=== PATIENT | male | born 1985 | race Caucasian/White ===

== ENCOUNTER 2016-12-05 20:18 | Emergency (ER) | payer SELFPAY ==
[2016-12-05] VITALS (7 sets, daily range): BP systolic 149–198; BP diastolic 107–123; PULSE 69–92; RESP 20; TEMP 98.5–98.6; O2SAT 97–99
[~2016-12-05] VITALS: Ht 170.2 cm; Wt 80.5 kg
[~2016-12-05 20:18] MED LIST: SERO25TA OR
--- NOTE | 2016-12-05 20:38 | PD ---
HPI Chief Complaint: chest pain Time Seen by Provider: 20:24 Travel History International Travel<30 days: No Contact w/Intl Traveler<30days: No Traveled to known affect area: No History of Present Illness HPI The patient is a 31-year-old male who presents emergency department for a one-week history of intermittent headaches, chest pain, nausea, and elevated blood pressure. The patient states he has a one-week history of intermittent headaches located in the bifrontal area, throbbing, intermittent, and associated with elevated blood pressure. The patient states his headaches are so that he occasionally has nausea with one episode of vomiting. The patient didn't develop substernal chest pain described as pressure, occasionally radiates to the back, intermittent, and not exacerbated by activity. He also complains of elevated blood pressure earlier tonight, denies any known history of hypertension. The patient denies any known history of CAD , CVA, TIA, previous hypertension, hyperlipidemia, diabetes, or significant family history for early CAD. The patient does have a history of tobacco use and occasional marijuana use. Symptoms are moderate, possibly exacerbated by elevated blood pressure, and there are no current alleviating factors. [facility] Past Medical History Narrative Medical Denies Diabetes: No Diminished Hearing: No Immunizations Current: No Ulcer: Yes Past Surgical History Abdominal Surgery: Yes (umphalocele correction surgery) Social History Alcohol Use: Yes (Almost daily - 12-15 beers) Tobacco Use: Yes (1PPD) Substance Use: Yes (Most recent use/abuse powder cocaine, ETOH, and marijuanna. ) Allergies-Medications (Allergen,Severity, Reaction): Coded Allergies: No Known Allergies (Verified , 09/06/11) Reported Meds & Prescriptions Reported Meds & Active Scripts Active Norvasc (Amlodipine Besylate) 10 Mg Tab 10 Mg PO DAILY Reported Seroquel 25 mg (Quetiapine Fumarate) 25 Mg Tab 25 Mg OR Review of Systems Except as stated in HPI: all other systems reviewed are Neg Eyes: No: Blurred Vision HENT: Positive: Headaches, No: Neck Pain Cardiovascular: Positive: Chest Pain or Discomfort Respiratory: No: Shortness of Breath Gastrointestinal: Positive: Nausea, Vomiting, No: Abdominal Pain Musculoskeletal: No: Weakness Neurologic: Positive: Headache, No: Dizziness, Change in Mentation, Slurred Speech, Paresthesia, Sensory Disturbance Physical Exam Narrative GENERAL: Awake, alert, pleasant 31-year-old male who appears his stated age and is in no acute respiratory distress. SKIN: Warm and dry. HEAD: Atraumatic. Normocephalic. EYES: Pupils equal and round. Pupils are 4 mm bilateral and reactive. EOMs are intact. ENT: No nasal bleeding or discharge. Mucous membranes pink and moist. NECK: Trachea midline. No JVD. CARDIOVASCULAR: Regular rate and rhythm. No murmur appreciated. Heart rate in the 90s. RESPIRATORY: No accessory muscle use. Clear to auscultation. Breath sounds equal bilaterally. GASTROINTESTINAL: Abdomen soft, non-tender, nondistended. 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 NEUROLOGICAL: Awake and alert. No obvious cranial nerve deficits. Motor grossly within normal limits. Normal speech. Nonfocal. Oriented 4. PSYCHIATRIC: Appropriate mood and affect; insight and judgment normal. Data Data Last Documented VS Vital Signs Date Time Temp Pulse Resp B/P Pulse Ox O2 Delivery O2 Flow Rate FiO2 12/05/16 21:30 90 20 149/113 99 Nasal Cannula 2 12/05/16 20:52 98.5 Orders Electrocardiogram (12/05/16 20:33) Ckmb (Isoenzyme) Profile (12/05/16 20:33) Complete Blood Count With Diff (12/05/16 20:33) Comprehensive Metabolic Panel (12/05/16 20:33) Magnesium (Mg) (12/05/16 20:33) Prothrombin Time / Inr (Pt) (12/05/16 20:33) Act Partial Throm Time (Ptt) (12/05/16 20:33) Troponin I (12/05/16 20:33) Chest, Single Ap (12/05/16 20:33) Ecg Monitoring (12/05/16 20:33) Bilateral Bp Monitoring (12/05/16 20:33) Iv Access Insert/Monitor (12/05/16 20:33) Oximetry (12/05/16 20:33) Oxygen Administration (12/05/16 20:33) Sodium Chloride 0.9% Flush (Ns Flush) (12/05/16 20:45) Sodium Chlorid 0.9% 500 Ml Inj (Ns 500 M (12/05/16 20:45) Ct Brain W/O Iv Contrast(Rout) (12/05/16 ) Labetalol Inj (Trandate Inj) (12/05/16 20:45) Potassium Chloride (Kcl) (12/05/16 21:15) CKMB (12/05/16 19:40) CKMB% (12/05/16 19:40) Sodium Chlor 0.9% 1000 Ml Inj (Ns 1000 M (12/05/16 22:00) Famotidine Inj (Pepcid Inj) (12/05/16 22:00) Al-Mag Hy-Si 40-40-4 Mg/Ml Liq (Mag-Al P (12/05/16 22:00) Lidocaine 2% Viscous (Xylocaine 2% Visco (12/05/16 22:00) Amlodipine (Norvasc) (12/05/16 22:30) Labs Laboratory Tests Test 12/05/16 12/05/16 19:40 22:00 White Blood Count 10.4 TH/MM3 Red Blood Count 4.10 MIL/MM3 Hemoglobin 13.4 GM/DL Hematocrit 39.2 % Mean Corpuscular Volume 95.6 FL Mean Corpuscular Hemoglobin 32.7 PG Mean Corpuscular Hemoglobin 34.2 % Concent Red Cell Distribution Width 12.4 % Platelet Count 319 TH/MM3 Mean Platelet Volume 8.6 FL Neutrophils (%) (Auto) 72.2 % Lymphocytes (%) (Auto) 19.1 % Monocytes (%) (Auto) 6.5 % Eosinophils (%) (Auto) 1.6 % Basophils (%) (Auto) 0.6 % Neutrophils # (Auto) 7.4 TH/MM3 Lymphocytes # (Auto) 2.0 TH/MM3 Monocytes # (Auto) 0.7 TH/MM3 Eosinophils # (Auto) 0.2 TH/MM3 Basophils # (Auto) 0.1 TH/MM3 CBC Comment DIFF FINAL Differential Comment Sodium Level 140 MEQ/L Potassium Level 3.0 MEQ/L Chloride Level 100 MEQ/L Carbon Dioxide Level 31.3 MEQ/L Anion Gap 9 MEQ/L Blood Urea Nitrogen 15 MG/DL Creatinine 2.10 MG/DL Estimat Glomerular Filtration 37 ML/MIN Rate Random Glucose 105 MG/DL Calcium Level 14.4 MG/DL Protein Corrected Calcium 13.7 MG/DL Magnesium Level 2.0 MG/DL Total Bilirubin 0.4 MG/DL Aspartate Amino Transf 17 U/L (AST/SGOT) Alanine Aminotransferase 20 U/L (ALT/SGPT) Alkaline Phosphatase 80 U/L Total Creatine Kinase 153 U/L Creatine Kinase MB LESS THAN 0.5 NG/ML Troponin I 0.03 NG/ML Total Protein 8.0 GM/DL Albumin 4.0 GM/DL Prothrombin Time 10.7 SEC Prothromb Time International 1.0 RATIO Ratio Activated Partial 21.9 SEC Thromboplast Time MDM Medical Decision Making Medical Screen Exam Complete: Yes Emergency Medical Condition: Yes Medical Record Reviewed: Yes Interpretation(s) EKG reveals normal sinus rhythm with a rate in 92. R-wave noted in lead V2. Last Impressions Chest X-Ray 12/05/162032 Signed Impressions: Service Date/Time: Monday, December 05, 2016 20:42 - CONCLUSION: No evidence of acute cardiopulmonary disease. Brendon Ambrocio MD Head CT 12/05/16 0000 Signed Impressions: Service Date/Time: Monday, December 05, 2016 20:41 - CONCLUSION: Negative noncontrast head CT. Brendon Ambrocio MD Laboratory Tests Test 12/05/16 19:40 White Blood Count 10.4 TH/MM3 Red Blood Count 4.10 MIL/MM3 Hemoglobin 13.4 GM/DL Hematocrit 39.2 % Mean Corpuscular Volume 95.6 FL Mean Corpuscular Hemoglobin 32.7 PG Mean Corpuscular Hemoglobin 34.2 % Concent Red Cell Distribution Width 12.4 % Platelet Count 319 TH/MM3 Mean Platelet Volume 8.6 FL Neutrophils (%) (Auto) 72.2 % Lymphocytes (%) (Auto) 19.1 % Monocytes (%) (Auto) 6.5 % Eosinophils (%) (Auto) 1.6 % Basophils (%) (Auto) 0.6 % Neutrophils # (Auto) 7.4 TH/MM3 Lymphocytes # (Auto) 2.0 TH/MM3 Monocytes # (Auto) 0.7 TH/MM3 Eosinophils # (Auto) 0.2 TH/MM3 Basophils # (Auto) 0.1 TH/MM3 CBC Comment DIFF FINAL Differential Comment Sodium Level 140 MEQ/L Potassium Level 3.0 MEQ/L Chloride Level 100 MEQ/L Carbon Dioxide Level 31.3 MEQ/L Anion Gap 9 MEQ/L Blood Urea Nitrogen 15 MG/DL Creatinine 2.10 MG/DL Estimat Glomerular Filtration 37 ML/MIN Rate Random Glucose 105 MG/DL Calcium Level 14.4 MG/DL Protein Corrected Calcium 13.7 MG/DL Magnesium Level 2.0 MG/DL Total Bilirubin 0.4 MG/DL Aspartate Amino Transf 17 U/L (AST/SGOT) Alanine Aminotransferase 20 U/L (ALT/SGPT) Alkaline Phosphatase 80 U/L Total Creatine Kinase 153 U/L Troponin I 0.03 NG/ML Total Protein 8.0 GM/DL Albumin 4.0 GM/DL Differential Diagnosis Differential diagnosis includes hypertensive urgency, hypertensive emergency, hypertension, aortic dissection, intracranial hemorrhage, acute coronary syndrome, acute kidney disease. Narrative Course IV was established, labs are drawn and sent, and the patient was placed on cardiac telemetry monitoring and continuous pulse oximetry monitoring. EKG was ordered and interpreted. Chest x-ray was ordered. CT of the brain was obtained. The patient was administered labetalol 20 mg intravenously. Chest x- ray is unremarkable. CT the brain is negative. Patient's creatinine was noted to be elevated at 2.1, I reviewed the EMR, his previous creatinine was normal. Patient's calcium was elevated, greater than 14, protein corrected was 13.7. The patient states he has a lot of reflux, does consume a lot of Tums throughout the day and is requesting Tums in the emergency department. Abdominal exam is benign, the patient was administered GI cocktail and Pepcid, unsure if the patient's elevated creatinine is secondary to hypercalcemia from over ingestion of Tums or of hypercalcemia secondary to underlying renal insufficiency secondary to hypertension. The patient does not have a medical doctor. Therefore, the patient was administered 1 L of IV fluids and will be admitted for ultrasound of the kidneys, reevaluation of creatinine after hydration and reevaluation of hypercalcemia. However, at 9:58 PM the patient stated he did not want to stay in the hospital overnight. The patient is alert and oriented, able to make a competent decision , therefore, will sign out against infertility medical assistant. The patient is advised to follow-up with a primary physician for reevaluation of his kidney function, calcium level, and blood pressure. The patient is requesting a blood pressure medication prior to leaving against infertility medical assistant. I will write for Norvasc as it should not affect his kidney function or calcium levels, however, he is advised to follow-up with her primary physician as soon as possible. Procedures Procedure Narrative AMA: The risks of leaving against medical advice without further evaluation treatment were discussed with the patient. These risks include cardiac dysfunction, cardiac dysrhythmia, possible heart attack, possible stroke or . The patient indicated understanding of these risks and appeared to have the capacity to make this decision. Physician Communication Physician Communication [place] [facility] were paged for admission. The call was canceled at 9:58 PM, the patient decided to sign out against infertility medical assistant. Diagnosis Primary Impression: Hypercalcemia Additional Impressions: Acute kidney injury Hypertensive urgency Patient Instructions: General Instructions Additional Instructions: Follow-up with a primary physician as soon as possible. Please provide the patient a copy of his labs at discharge. Med/Other Pt SpecificInfo: Prescription(s) given Scripts Amlodipine (Norvasc)10 Mg Tab10 Mg PO DAILY #30 TAB Ref 0 Prov:Shon Pedersen MD 12/05/16 Disposition: 07 AGAINST MEDICAL ADVICE Condition: Stable Shon Pedersen MD Dec 05, 2016 20:38
[2016-12-05] MEDS ORDERED: LABETALOL HCL 100 MG/20 ML VIAL IV PUSH ONE (20:45)
[2016-12-05] MEDS ORDERED: SODIUM CHLORIDE 0.9% FLUSH 5 ML FLUSH IVF PRN (20:45)
[2016-12-05] MEDS ORDERED: SODIUM CHLORID 0.9% 500 ML INJ 500 ML IV ONE (20:45)
[2016-12-05 20:47] LABS: AUTOMATED NEUTROPHIL # 7.4 TH/MM3 (1.8-7.7); BASOPHIL # 0.1 TH/MM3 (0-0.2); BASOPHIL % 0.6 % (0.0-2.0); EOSINOPHIL # 0.2 TH/MM3 (0-0.4); EOSINOPHIL % 1.6 % (0.0-4.0); HEMATOCRIT 39.2 % (39.0-51.0); HEMO FLAGS DIFF FINAL; LYMPH % 19.1 % (9.0-44.0); MEAN CELL VOLUME 95.6 FL (80.0-100.0); MEAN CORPUSCULAR HEMOGLOBIN 32.7 PG (27.0-34.0); MEAN CORPUSCULAR HGB CONC 34.2 % (32.0-36.0); MONO % 6.5 % (0.0-8.0); NEUT % 72.2 % (16.0-70.0); PLATELET COUNT 319 TH/MM3 (150-450); RED CELL DISTRIBUTION WIDTH 12.4 % (11.6-17.2); WHITE BLOOD COUNT 10.4 TH/MM3 (4.0-11.0)
--- NOTE | 2016-12-05 21:04 | RADHPO ---
EXAM DATE/TIME: 12/05/2016 20:41 [facility] COMPARISON: No previous studies available for comparison. INDICATIONS : Cephalgia RADIATION DOSE: 61.67 CTDIvol (mGy) MEDICAL HISTORY : None SURGICAL HISTORY : None. ENCOUNTER: Initial ACUITY: 1 day PAIN SCALE: 4/10 LOCATION: cranial TECHNIQUE: Multiple contiguous axial images were obtained of the head. Using automated exposure control and adj ustment of the mA and/or kV according to patient size, radiation dose was kept as low as reasonably a chievable to obtain optimal diagnostic quality images. FINDINGS: CEREBRUM: The ventricles are normal for age. No evidence of midline shift, mass lesion, hemorrhage or acute in farction. No extra-axial fluid collections are seen. POSTERIOR FOSSA: The cerebellum and brainstem are intact. The 4th ventricle is midline. The cerebellopontine angle i s unremarkable. EXTRACRANIAL: The visualized portion of the orbits is intact. SKULL: The calvaria is intact. No evidence of skull fracture. CONCLUSION: Negative noncontrast head CT. Brendon Ambrocoi MD on December 05, 2016 at 21:02 Board Certified Radiologist. This report was verified electronically.
--- NOTE | 2016-12-05 21:04 | RADHPO ---
EXAM DATE/TIME: 12/05/2016 20:42 [facility] COMPARISON: No previous studies available for comparison. INDICATIONS : Complains of chest pain and headache. High blood pressure. MEDICAL HISTORY : None. SURGICAL HISTORY : None. ENCOUNTER: Initial ACUITY: 2 days PAIN SCORE: 10/10 LOCATION: Bilateral chest FINDINGS: A single view of the chest demonstrates the lungs to be symmetrically aerated without evidence of mas s, infiltrate or effusion. The cardiomediastinal contours are unremarkable. Osseous structures are intact. CONCLUSION: No evidence of acute cardiopulmonary disease. Brendon Ambrocio MD on December 05, 2016 at 21:02 Board Certified Radiologist. This report was verified electronically.
[2016-12-05 21:07] LABS: CHLORIDE 100 MEQ/L (98-107); SODIUM (NA) 140 MEQ/L (136-145)
[2016-12-05 21:11] LABS: ANION GAP 9 MEQ/L (5-15); BICARBONATE 31.3 MEQ/L (21.0-32.0); BLOOD UREA NITROGEN 15 MG/DL (7-18)
[2016-12-05 21:14] LABS: ALT (GPT) 20 U/L (12-78); AST (GOT) 17 U/L (15-37); GLOMERULAR FILTRATION RATE 37 ML/MIN (>89)
[2016-12-05] MEDS ORDERED: POTASSIUM CHLORIDE 20 MEQ CONTROLLED RELEASE TAB PO ONE (21:15)
[2016-12-05 21:46] LABS: ALKALINE PHOSPHATASE 80 U/L (45-117); CREATINE KINASE 153 U/L (39-308); TOTAL BILIRUBIN ADULT 0.4 MG/DL (0.2-1.0)
[2016-12-05 21:49] LABS: CALCIUM-PROTEIN CORRECTED 13.7 MG/DL (8.5-10.1)
[2016-12-05] MEDS ORDERED: ALUMINUM/MAGNESIUM/SIMETH 30 ML CUP PO ONE (22:00)
[2016-12-05] MEDS ORDERED: LIDOCAINE VISCOUS 2% SOLN 15 ML UDC PO ONE (22:00)
[2016-12-05] MEDS ORDERED: FAMOTIDINE 20 MG/2 ML VIAL IV PUSH ONE (22:00)
[2016-12-05] MEDS ORDERED: SODIUM CHLOR 0.9% 1000 ML INJ 1,000 ML IV ONE (22:00)
[2016-12-05] MEDS ORDERED: AMLO10 PO (22:18)
[2016-12-05 22:19] LABS: APTT (PATIENT) 21.9 SEC (24.3-30.1); PROTHROMBIN TIME - PATIENT 10.7 SEC (9.8-11.6)
[2016-12-05 22:26] LABS: CKMB LESS THAN 0.5 NG/ML (0.5-3.6)
--- NOTE | 2016-12-06 11:39 | EKG ---
Date Performed: 12/05/2016 Time Performed: 20:22:42 PTAGE: 31 years EKG: Sinus rhythm Normal ECG PREVIOUS TRACING : 07/18/2011 09.22 No significant change from previous tracing noted. DOCTOR: Flex Miller Interpretating Date/Time 12/06/2016 11:39:10
== END 2016-12-05 22:53 | disposition left against medical advice (07) ==
LOC: PHED 20:18
DX: E83.52 Hypercalcemia (principal); N17.9 Acute kidney failure, unspecified; I16.0 Hypertensive urgency; F17.200 Nicotine dependence, unspecified, uncomplicated
CPT/HCPCS: 70450; 71010; 80053; 82550; 82552; 83735; 84484; 85025; 85610; 85730; 93005; 96361; 96374; 96375; 99285; J7030; J7040